=== PATIENT | female | born 1950 | race Caucasian/White ===

== ENCOUNTER 2017-01-30 07:12 | Inpatient (IN) | payer BC, MEDICARE ==
[2017-01-30] MEDS ORDERED: IPRATROPIUM-ALBUTEROL 3 ML NEB INHALATION STA (08:16)
--- NOTE | 2017-01-30 08:46 | ED ---
General Adult HPI - General Source: patient, RN notes reviewed Mode of arrival: wheelchair Limitations: no limitations <Shiva Rain - Last Filed: 01/30/17 13:46> <Feliciano Baldwin - Last Filed: 01/31/17 07:54> - General Chief complaint: Extremity Problem,Nontraumatic Stated complaint: Left Leg Pain-No Injury Time Seen by Provider: 01/30/17 08:06 - History of Present Illness Initial comments: This a 66-year-old female presents emergency Department with chief complaint of left leg pain and numbness. Patient states this has been going on for 2 weeks progressively getting worse. She states that her leg slightly feels more weak than usual. Patient states that she has numbness down to her foot along with that pain that radiates from her left low back down to her foot. Patient states that she is able to walk but states it is more painful. Patient denies any bowel, bladder incontinence or retention. Patient states that she has no history of chronic back injuries no surgeries. Patient has no abdominal complaints or nausea vomiting diarrhea constipation. Patient denies any discoloration of her lower leg. Patient has no chest pain or history of DVT. Patient denies any swelling to her lower leg. Patient also states that she's had issues with her COPD. Patient states that she was on steroids and a steroid injection follow sniffily better the following day but states over the weekend she forgot her nebulizer when she went away and states that she's been wheezing today. Patient has any fever or chills no productive cough. (Shiva Rain) - Related Data Home Medications Medication Instructions Recorded Confirmed Albuterol Sulfate [Proventil Hfa] 2 puff INHALATION RT-Q6H PRN 01/30/17 01/30/17 Cholecalciferol (Vitamin D3) 2,000 unit PO DAILY 01/30/17 01/30/17 [Vitamin D3] Ibuprofen [Motrin] 800 mg PO DAILY PRN 01/30/17 01/30/17 Ipratropium-Albuterol Nebulize 3 ml INHALATION RT-QID PRN 01/30/17 01/30/17 [Duoneb 0.5 mg-3 mg/3 ml Soln] Tiotropium Br/Olodaterol HCl 2 spray INHALATION RT-DAILY 01/30/17 01/30/17 [Stiolto Respimat Inhal [place]] Previous Rx's Medication Instructions Recorded HYDROcodone/APAP 5-325MG [[place] 5] 1 each PO Q8HR PRN #60 tab 01/31/17 Allergies Allergy/AdvReac Type Severity Reaction Status Date / Time No Known Allergies Allergy Verified 01/30/17 08:10 Review of Systems ROS Other: All systems not noted in ROS Statement are negative. <Shiva Rain - Last Filed: 01/30/17 13:46> ROS Other: All systems not noted in ROS Statement are negative. <NicolasaFeliciano Quan - Last Filed: 01/31/17 07:54> ROS Statement: Those systems with pertinent positive or pertinent negative responses have been documented in the HPI. Past Medical History Past Medical History: No Reported History History of Any Multi-Drug Resistant Organisms: None Reported Past Surgical History: Bariatric Surgery, Hysterectomy Past Psychological History: No Psychological Hx Reported Smoking Status: Former smoker Past Alcohol Use History: None Reported Past Drug Use History: None Reported <Shiva Rain - Last Filed: 01/30/17 13:46> - Past Family History Father Family Medical History: Myocardial Infarction ([place]) Mother Family Medical History: [place]ocardial Infarction [place]) <NicolasaFeliciano Quan - Last Filed: 01/31/17 07:54> General Exam Limitations: no limitations General appearance: alert, in no apparent distress Neck exam: Present: normal inspection, full ROM. Absent: tenderness, meningismus, lymphadenopathy Respiratory exam: Present: wheezes. Absent: normal lung sounds bilaterally, respiratory distress, rales, rhonchi, stridor Cardiovascular Exam: Present: regular rate, normal rhythm, normal heart sounds. Absent: systolic murmur, diastolic murmur, rubs, gallop, clicks GI/Abdominal exam: Present: soft, normal bowel sounds. Absent: distended, tenderness, guarding, rebound, rigid Extremities exam: Present: other (Patient has weakness noted to the left lower extremity patient is unable to lift leg and complains of paresthesias pulses equal bilaterally) Back exam: Present: full ROM, tenderness (Left low back), paraspinal tenderness. Absent: vertebral tenderness Neurological exam: Present: alert, oriented X3, CN II-XII intact, reflexes normal. Absent: motor sensory deficit Skin exam: Present: warm, dry, intact, normal color. Absent: rash <Shiva Rain - Last Filed: 01/30/17 13:46> Medical Decision Making <Shiva Rain - Last Filed: 01/30/17 13:46> - Lab Data Result diagrams: 01/30/17 09:25 01/30/17 14:25 <Feliciano Baldwin - Last Filed: 01/31/17 07:54> - Medical Decision Making 66-year-old female with past medical history of COPD presenting with acute low back pain and left lower extremity weakness, numbness and paresthesia. Patient has no history of low back pain previously. She developed these symptoms over the last 2 weeks. This was atraumatic. CT was initially obtained and showed possible disc extrusion or fragmentation, MRI was ordered in the emergency department. On examination patient has profound weakness of the left lower extremity, sensory changes below the knee, reflexes 1+ at the patella. Patient has no bowel or bladder symptoms. She does have some paraspinal and midline tenderness and lumbar spine. Case was discussed with orthopedic surgery, they were able to review the MRI while the patient was in the emergency department. She will be admitted for urgent orthopedic surgery. (Feliciano Baldwin) - Lab Data Lab Results 01/30/17 Range/Units 09:25 WBC 7.1 (3.8-10.6) k/uL RBC 4.87 (3.80-5.40) m/uL Hgb 14.5 (11.4-16.0) gm/dL Hct 43.5 (34.0-46.0) % MCV 89.4 (80.0-100.0) fL MCH 29.8 (25.0-35.0) pg MCHC 33.4 (31.0-37.0) g/dL RDW 13.6 (11.5-15.5) % Plt Count 232 (150-450) k/uL Neutrophils % 70 % Lymphocytes % 15 % Monocytes % 5 % Eosinophils % 10 % Basophils % 1 % Neutrophils # 5.0 (1.3-7.7) k/uL Lymphocytes # 1.1 (1.0-4.8) k/uL Monocytes # 0.3 (0-1.0) k/uL Eosinophils # 0.7 (0-0.7) k/uL Basophils # 0.0 (0-0.2) k/uL Disposition <Shiva Rain - Last Filed: 01/30/17 13:46> <Feliciano Baldwin - Last Filed: 01/31/17 07:54> Clinical Impression: Lumbar back pain with radiculopathy affecting left lower extremity, Left leg weakness, Lumbar disc herniation with radiculopathy Disposition: ADMITTED IP TO THIS HOSP Condition: Good Addendum entered and electronically signed by Shiva Rain PAShant 01/30/17 14: 35: EKG performed at 14:17 sinus rhythm with PAC, rate of 99 LA interval 146 QRS duration 88 QT/QTC 364/467
--- NOTE | 2017-01-30 09:04 | XR ---
EXAMINATION TYPE: XR chest 2V DATE OF EXAM: 01/30/2017 COMPARISON: NONE HISTORY: Chest pain with weakness in legs today. TECHNIQUE: Frontal and lateral views of the chest are obtained. FINDINGS: There is no focal air space opacity, pleural effusion, or pneumothorax seen. The cardiac silhouette size is within normal limits. The osseous structures are intact. Cholecystectomy clips a re felt present on lateral view. IMPRESSION: No acute cardiopulmonary process.
--- NOTE | 2017-01-30 09:13 | CT ---
EXAMINATION TYPE: CT lumbar spine wo con DATE OF EXAM: 01/30/2017 9:01 AM COMPARISON: NONE HISTORY: Left leg pain CT DLP: 981 mGycm Automated exposure control for dose reduction was used. Unenhanced CT of the lumbar spine was performed. Bone and soft tissue window settings are submitted as well as coronal and sagittal reconstructions. Previous surgery in the epigastric region noted. Multilevel Schmorl's nodes are seen. Vacuum disc are noted at L4-5 and L5-S1 with degenerative disc disease at remaining levels. Findings suggest sacroil iitis bilaterally. L1-L2: Normal disc space height. No disc herniation protrusion or central stenosis. No facet joint arthropathy. No evidence for foraminal encroachment. L2-L3: There is left lateral disc bulging with mild effacement of thecal sac and left-sided foraminal encroachment. Left lateral protrusion not excluded. Facet arthropathy noted. MRI recommended L3-L4: Diffuse disc bulging with bilateral foraminal encroachment, facet arthropathy, and ligament fl avum hypertrophy. Foraminal encroachment and canal stenosis suspected. L4-L5: Abnormal signal along the left margin of the thecal sac posterior to the L4 vertebral body. Th is could represent extruded disc fragment. Neural lesion not excluded. Recommend MRI with contrast. F acet arthropathy noted and there is severe degenerative disc disease with ligamentum flavum hypertrop hy and diffuse disc bulging and canal stenosis. Slight anterolisthesis of L4 on L5. L5-S1: Severe degenerative disc disease with facet arthropathy. No Canal stenosis. Neural foraminal e ncroachment greater on the right. Congenital limbus deformity of L5 noted. IMPRESSION: Multilevel degenerative disc disease with severe changes at L4-5 and L5-S1. Rounded area of abnormal signal along the left margin of the thecal sac posterior to the L4 vertebral body. Differential diagn osis would include extruded disc fragment and neural sheath lesion. Recommend MRI with contrast. Multilevel disc bulging and foraminal encroachment as discussed above with multilevel canal stenosis suspected. Correlate with MRI. Gallstones suspected.
[2017-01-30] MEDS ORDERED: DEXAMETHASONE SOD PHOSPHATE 10 MG/ML 1 ML VIAL IV STA (09:23)
[2017-01-30] MEDS ORDERED: ALBUTEROL NEBULIZED 2.5 MG/3 ML INHALATION STA (09:33)
--- NOTE | 2017-01-30 13:13 | MR ---
EXAMINATION TYPE: MR lumbar spine wo con DATE OF EXAM: 01/30/2017 COMPARISON: CT lumbar spine from earlier today HISTORY: leg paresthesias, weakness, abnormal CT lumbar TECHNIQUE: Multiplanar, multisequence imaging of the lumbar spine is performed without IV contrast. I V contrast imaging could not be performed as patient could not continue due to quitting related to co ughing episode. FINDINGS: Sagittal images of the lumbar spine show vertebral body heights and alignment to appear sat isfactory. Limbus vertebra involving anterior superior L5 endplate is noted. There are multilevel sup erior and inferior endplate Schmorl nodes. There is multilevel disc desiccation seen. There is multil evel mild disc space narrowing. Vacuum disc phenomenon is redemonstrated in lower lumbar levels. No l arge posterior disc herniations are seen on sagittal images. The conus medullaris remains normal in p osition and signal ending at superior L2 level. The bone marrow signal intensity is within normal li mits. Axial images show the T12-L1 and L1-L2 levels to appear within normal limits. Axial images at the L2-L3 level show mild/moderate broad disc bulge mildly effacing anterior thecal s ac with a left lateral disc protrusion component. There are mild facet degenerative changes seen bila terally with ligamentum flavum hypertrophy. Bilateral neural foramina remain patent. Axial images at L3-L4 level show moderate broad disc bulge effacing anterior thecal sac. There is mil d facet degenerative changes and ligament flavum hypertrophy mildly effacing posterior lateral thecal sac on axial image 16. There is mild bilateral anterior inferior neural foraminal narrowing at this level identified. There appears to be visualization of disc herniation on sagittal image 6 towards the left foramina wi th discontinuity seen on image 15 and then visualization of low intense area on T2-weighted images ar e correlated with CT abnormality filling the left lateral recess likely effacing central left L4 nerv e in the anterolateral spinal canal. Lesion is extra medullary presumed extradural in location. Axial images at L4-L5 level show mild to moderate facet degenerative changes and ligament flavum hype rtrophy bilaterally. There is central disc bulge mildly effacing anterior thecal sac. There is some e ffacement the posterior lateral thecal sac. There is mild bilateral neural foraminal narrowing at thi s level identified. Axial images at L5-S1 level show mild right-sided facet degenerative changes. There is broad disc bul ge minimally effacing the anterior thecal sac. There is mild bilateral anterior inferior neural lucy inal narrowing at this level identified. Dependent gallstones are seen in gallbladder varying in size. IMPRESSION: Suboptimal study as patient could not complete post contrast imaging. There is significan t artifact degradation on T1 axial imaging. There is abnormal area at level of the left L4 vertebra u pper to mid aspect of uncertain etiology, more importantly it is effacing the anterolateral spinal ca nal and lateral recess as well as central left L4 nerve ; would favor a free disc fragment over disc extrusion, other etiologies not excluded. Neurosurgical consultation advised though lesion is strongl y favored chronic in etiology.
[2017-01-30] MEDS ORDERED: ceFAZolin 2 GM in SODIUM CHLORIDE 0.9% 100 ML IVPB STA (13:39)
[2017-01-30] MEDS ORDERED: ONDANSETRON 4 MG/2 ML VIAL IVP PRN (13:47)
[2017-01-30] MEDS ORDERED: NALOXONE 0.4 MG/ML 1 ML VIAL IV PRN (13:47)
[2017-01-30] MEDS ORDERED: MORPHINE SULFATE 4 MG/ML SYRINGE IV PRN (13:47)
[2017-01-30] MEDS ORDERED: DIAZEPAM 5 MG/ML 2 ML SYRINGE IVP PRN (13:49)
[2017-01-30 14:27] LABS: Basophils % (A) 1 %; CH 29.4; CHCM 33.1; Eosinophils # (A) 0.7 k/uL (0-0.7); Eosinophils % (A) 10 %; HCT 43.5 % (34.0-46.0); HGB 14.5 gm/dL (11.4-16.0); Luc # (Auto) 0.05; Luc % (Auto) 1; Lymphocytes # (A) 1.1 k/uL (1.0-4.8); Lymphocytes % (A) 15 %; MCH 29.8 pg (25.0-35.0); MCHC 33.4 g/dL (31.0-37.0); MCV 89.4 fL (80.0-100.0); Mean Platelet Volume 7.7; Monocytes # (A) 0.3 k/uL (0-1.0); Monocytes % (A) 5 %; Neutrophils % (A) 70 %; RBC 4.87 m/uL (3.80-5.40); RDW 13.6 % (11.5-15.5); WBC 7.1 k/uL (3.8-10.6); WBC (Perox) 7.19
[2017-01-30] MEDS: SODIUM CHLORIDE 0.9% 1,000 ML IV SCH (14:55)
[2017-01-30 14:58] LABS: ALT 36 U/L (9-52); AST 27 U/L (14-36); Alkaline Phosphatase 120 U/L (38-126); Anion Gap 11 mmol/L; Blood Urea Nitrogen 11 mg/dL (7-17); Calcium 8.7 mg/dL (8.4-10.2); Carbon Dioxide 25 mmol/L (22-30); Chloride 106 mmol/L (98-107); Glucose 127 mg/dL (74-99); Non-African American GFR(MDRD) >60 (>60 ml/min/1.73 sqM); Potassium 4.1 mmol/L (3.5-5.1); Sodium 142 mmol/L (137-145); Total Bilirubin 0.5 mg/dL (0.2-1.3); Total Protein 6.9 g/dL (6.3-8.2)
[2017-01-30 14:59] LABS: Partial Thromboplastin Time 24.3 sec (22.0-30.0); Prothrombin Time 10.2 sec (9.0-12.0)
[2017-01-30] MEDS ORDERED: IV FLUID CONTINUATION 975 ML IV ONE (16:15)
[2017-01-30] MEDS ORDERED: BACITRACIN 50,000 UNIT, POLYMYXIN B 500,000 UNIT in SODIUM CHLORIDE 0.9% IRRIGATIO 1,00... IRRIGATION STA (16:48)
--- NOTE | 2017-01-30 17:32 | P.HPOR ---
History of Present Illness H&P Date: 01/30/17 Chief Complaint: left leg pain and waeknes Patient is a very pleasant 66-year-old female who has an acute issue with left lower extremity pain and weakness. She says that she denies any specific injury. She denies any trauma. She denies any prior problem with her back or leg. She says that she was pulling some weeds over the weekend and it was somewhat strenuous but she woke up today and was having severe pain and weakness at her left leg. She was unable to stand unable to ambulate. She is normally a community ambulate without any assistance. She says she feels extremely weak at her left thigh and she has burning pain with numbness and tingling down her left anterior thigh over her knee and do over her li. She' s not having problems in her right lower extremity. She denies any chest pain or shortness of breath. She denies any fevers or chills. Review of Systems As stated in HPI. She admits to history of COPD which she takes medicine. Past Medical History Past Medical History: COPD Additional Past Medical History / Comment(s): BRONCHITS,"2 PAST EPISODES OF FAST HEART RATE- [place] AT [facility] FOR IT" History of Any Multi-Drug Resistant Organisms: None Reported Past Surgical History: Bariatric Surgery, Heart Catheterization, Hysterectomy, Orthopedic Surgery, Tonsillectomy, Tubal Ligation Additional Past Surgical History / Comment(s): PARTIAL HYSTERECTOMY, RT KNEE SX FOR TORN TENDON, COLONOSCOPY-"CLEAR" Past Anesthesia/Blood Transfusion Reactions: No Reported Reaction Past Psychological History: No Psychological Hx Reported Additional Psychological History / Comment(s): PT LIVES WITH HER DAUGHTER ESAU IN 2 STORY HOME THAT HAS 1 PORCH STEP. PT STAYS ON MAIN LEVEL. HAS 3 PET DOGS. NO HOMECARE SERVICES. 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 Smoking Status: Former smoker Past Alcohol Use History: None Reported Additional Past Alcohol Use History / Comment(s): STARTED SMOKING AT AGE 15(1966 ) SMOKED 1/2 PPD, QUIT 2013 AND STARTED TO USE VAPOR Past Drug Use History: None Reported - Past Family History Father Family Medical History: Myocardial Infarction ([place]) Mother Family Medical History: Myocardial Infarction ([place]) Medications and Allergies Home Medications Medication Instructions Recorded Confirmed Type Albuterol Sulfate [Proventil Hfa] 2 puff INHALATION RT-Q6H PRN 01/30/17 History Cholecalciferol (Vitamin D3) 2,000 unit PO DAILY 01/30/17 01/30/17 History [Vitamin D3] Ibuprofen [Motrin] 800 mg PO DAILY PRN 01/30/17 01/30/17 History Ipratropium-Albuterol Nebulize 3 ml INHALATION RT-QID PRN 01/30/17 01/30/17 History [Duoneb 0.5 mg-3 mg/3 ml Soln] Tiotropium Br/Olodaterol HCl 2 spray INHALATION RT-DAILY 01/30/17 01/30/17 History [Stiolto Respimat Inhal [place]] Allergies Allergy/AdvReac Type Severity Reaction Status Date / Time No Known Allergies Allergy Verified 01/30/17 08:10 Physical Examination Osteopathic Statement: *. No significant issues noted on an osteopathic structural exam other than those noted in the History and Physical/Consult. - L Spine: dermatomal strength & reflexes left Strength: hip flexion: 2/5 Strength: knee extension: 3/5 Strength: ankle dorsiflexion: 5/5 Strength: ankle plantar flexion: 5/5 Strength: great toe flexion: 5/5 Strength: great toe extension: 5/5 (At her low back there is no open wounds lacerations or abrasions. She is nontender to palpation over her back. Had her extremities at her left lower extremity she is unable to lift her leg up off the bed independently. She fires her left quad but it is not having of strength to hold her leg up. She essentially has 2+ to 3 minus strength at her left quadriceps. She is able to dorsiflex and plantarflex with 5 out of 5 strength on the left and right. Her right leg has 5 and 5 strength throughout. She has no pain with internal rotation of her hip. Her thigh and calf are soft nontender. Her chest is good excursion deep inspiration and expiration. Her upper extremity full active and passive range of motion. Her neck is nontender.) Results - Labs Labs: Abnormal Lab Results - Last 24 Hours (Table) 01/30/17 Range/Units 14:25 Glucose 127 H (74-99) mg/dL H & H 01/30/17 Range/Units 09:25 Hgb 14.5 (11.4-16.0) gm/dL Hct 43.5 (34.0-46.0) % Coagulation 01/30/17 Range/Units 14:40 INR 1.0 (<1.2) Result Diagrams: 01/30/17 09:25 01/30/17 14:25 - Diagnostic results Lumbar MRI with contrast: report reviewed, image reviewed (The lumbar MRI is performed today. There is evidence of a large disc herniation at L3 4 with extruded fragment caudally behind L4. It is primarily to the left and causing severe stenosis with left foraminal stenosis and severe compression of the left traversing nerve root.) Assessment and Plan Plan: Acute left L3 4 disc herniation with extruded fragment Acute left lower extremity weakness Acute left lower extremity pain due to L3 4 disc herniation The plan The patient has acute symptoms due to a acute large disc herniation at L3 4. She has severe weakness proximally in her left quad which causes her inability to ambulate and mobilize. The weakness is due to the disc herniation and I think the best treatment for her would be to decompress the nerve and allow the best chance of recovery and regaining her strength. Given that the weakness is proximal this certainly is more pressing issue to try to regain her strength so that she will be able to better mobilize. I do not think this requires any fusion at this point and I think that she can do well with decompression laminectomy and discectomy at L3 4. I discussed this with her and her daughter at bedside at length. I discussed the risks, occasions alternatives of treatment. I discussed the nature of her injury and the different issues involved with this. Discussed the risk of surgery including but not limited to the risk of bleeding risk and infection risk and need for further surgery risk of decreased loss of motion loss function, all dressings were explained to her and they like to proceed with surgical intervention and signed informed consent. The patient has been seen by medical service and she has been appropriately cleared for surgery. We will pursue surgical intervention for decompression and discectomy at L3 4 as soon as possible.
[2017-01-30] MEDS ORDERED: PHENYLEPHRINE-0.9% NACL SYG 1 MG/10 ML SYRINGE ONE (17:41)
[2017-01-30] MEDS ORDERED: ONDANSETRON 4 MG/2 ML VIAL ONE (17:41)
[2017-01-30] MEDS ORDERED: HYDROmorphone (PF) 1 MG/ML ONE (17:41)
[2017-01-30] MEDS ORDERED: NALOXONE 0.4 MG/ML 1 ML VIAL ONE (17:41)
[2017-01-30] MEDS ORDERED: LIDOCAINE 1% INJ 10MG/ML (20 ML MDV) ONE (17:41)
[2017-01-30] MEDS ORDERED: SUCCINYLCHOLINE CHLORIDE 100 MG/5 ML SYR IV ONE (17:41)
[2017-01-30] MEDS ORDERED: fentaNYL (PF) 50 MCG/ML 2 ML AMP ONE (17:41)
[2017-01-30] MEDS ORDERED: NEOSTIGMINE 1 MG/ML 10 ML VIAL ONE (17:41)
[2017-01-30] MEDS ORDERED: MIDAZOLAM 2 MG/2 ML VIAL ONE (17:41)
[2017-01-30] MEDS ORDERED: GLYCOPYRROLATE 0.2 MG/ML 2 ML VIAL ONE (17:41)
[2017-01-30] MEDS ORDERED: ROCURONIUM BROMIDE 10 MG/ML 10 ML VIAL IV ONE (17:41)
[2017-01-30] MEDS ORDERED: PROPOFOL 10 MG/ML 20 ML VIAL IV ONE (17:41)
[2017-01-30] MEDS ORDERED: SODIUM CHLORIDE 0.9% 100 ML with ceFAZolin 2,000 MG IV ONE ×2 (18:00)
[2017-01-30] MEDS ORDERED: THROMBIN (BOVINE) 5,000 UNIT VIAL TOPICAL ONE (18:09)
[2017-01-30] MEDS ORDERED: GELATIN SPONGE,ABSORB (LARGE) 1 EACH SPONGE TOPICAL ONE (18:09)
[2017-01-30] MEDS ORDERED: LIDOCAINE 0.5%-EPI 1:200,000 50 ML VIAL SQ ONE ×2 (18:09)
[2017-01-30] MEDS ORDERED: methylPREDNISolone ACETATE 80 MG/ML 1 ML VIAL MISCELLANE ONE (18:14)
[2017-01-30] MEDS ORDERED: HYDROmorphone 1 MG/ML 1 ML SYRINGE IVP PRN ×2 (19:02)
[2017-01-30] MEDS ORDERED: HYDROcodone/APAP 5-325MG 1 EACH TAB PO PRN (19:02)
[2017-01-30] MEDS ORDERED: MAGNESIUM HYDROXIDE 2,400 MG/10 ML CUP PO PRN (19:02)
[2017-01-30] MEDS ORDERED: BENZOCAINE/MENTHOL LOZENG 1 EACH LOZENGE MUCOUS MEM PRN (19:02)
[2017-01-30] MEDS ORDERED: DIAZEPAM 5 MG TAB PO PRN (19:02)
[2017-01-30] MEDS ORDERED: IBUPROFEN 600 MG TAB PO PRN (19:02)
--- NOTE | 2017-01-30 19:09 | P.OP ---
Date of Procedure: 01/30/17 Preoperative Diagnosis: Left lower extremity quadriceps weakness, acute, acute large disc herniation L3 4, degenerative disc disease Postoperative Diagnosis: Same Procedure(s) Performed: Implants: Anesthesia: GETA Pathology: none sent Condition: stable Disposition: PACU Indications for Procedure: Operative Findings: Description of Procedure: BRIEF OPERATIVE NOTE Preoperative Diagnosis: Large left L3 4 disc herniation with extruded fragments , left lower extremity weakness, degenerative disc disease Postoperative Diagnosis: Same Procedure: Laminectomy and decompression L3 4 Discectomy for decompression L3 4 Surgeon: Dr. Kuhn [employer] Manager: Griselda Andrews Anesthesia: General anesthesia Estimated blood loss: Approximately 50 mL Complications: None apparent Components implanted: None Disposition: To recovery room in good stable condition. OPERATIVE INDICATIONS The patient is very pleasant 66-year-old female who had acute sudden change in her lower neurologic status at her left lower extremity. She acute sudden weakness at her left quadriceps and this was causing her severe inability to ambulate and mobilize. She is unable to stand on her own due to the weakness at her left quadriceps. She was having difficulty even moving her left leg in bed. She presented to the emergency room today for this issue and was having significant pain at her left lower extremity as well. She was found have a large left paracentral disc herniation at L3 4 which correlated well with her lower extremity symptoms. She denied any specific injury or trauma or problems like this in the past. She had been doing some increased activity with yard work over this past weekend which she feels may have contributed to her new issues today. Given her profound weakness at her the proximal left leg in her quadriceps and the large discoloration which correlated well with her symptoms we felt that surgery would be the best option for her to give her the best chance of recovery of the strength and alleviation of her pain at her leg. We discussed various treatment options including surgery, and the patient wishes to proceed with surgery We discussed the risk, patient's alternatives and benefits of surgery including but not limited to, risk of bleeding risk of infection, risk of need for further surgery, risk of decreased, loss of motion, loss of function, nerve damage, paralysis, heart attack, blindness and . OPERATIVE SUMMARY After discussing all the risks, patient alternatives and benefits at length, the patient elected to proceed with surgical intervention, signed informed consent, and presented for their procedure. The patient was seen and examined in the preoperative holding area and the surgical site was marked. The patient was given antibiotics and brought to the operating room. The patient was sedated and intubated by anesthesia in standard fashion. The patient was positioned on to the operating room table in a prone position on the appropriate frame which was well-padded and well molded. We were careful to pad any bony prominences and pressure points. We were careful to maintain the patient's cervical spine and good neutral alignment and position throughout. The patient was prepped and draped in a normal standard fashion. An appropriate timeout and keystone protocol performed. We were able to proceed with the surgery. Fluoroscopy was utilized to establish the appropriate level of L3 4. The local wound area was infiltrated with local anesthetic. An incision was made at the midline longitudinally over the appropriate levels at L3 4. Dissection was taken down subcutaneously to the level of the fascia which was split midline. Dissection was taken over the lamina. Intraoperative fluoroscopy was taken which showed a marker at the appropriate level at L3 4. With the appropriate level positively confirmed, we were able to proceed with laminectomy. The wound was copiously irrigated and suctioned dry as had been done periodically throughout the case. I performed a laminectomy with a combination of curettes and a high-speed bur and Kerrison rongeurs. A small medial facetectomy was performed again further access. A partial foraminotomy was also performed. Portions of the ligamentum flavum were taken down to expose the dura and traversing nerve root. I was able to mobilize the traversing nerve root and gain access to the disc space. Note was made of obvious compression from the disc. There were large extruded disc fragments which had migrated caudally causing severe compression at the traversing nerve root. There were multiple fragments which had extruded and these were removed getting some good decompression. Protecting the soft tissue structures, a small annulotomy was established. I was able to perform discectomy and remove any extruded disc fragments and any loose fragments from within the disc itself. There were multiple fragmented disc pieces which were removed and the annulus appeared to be everting in the disc space and it was removed as well. There is some disc significant desiccation noted. I tried to preserve the disc annulus that appeared stable. There were no further extruded fragments noted. I was able get excellent decompression with removal of the disc material in the disc fragments. There is no evidence of dural tear or leak. Good hemostasis maintained. The wound was copiously irrigated and suctioned dry. Good decompression and discectomy was noted. We were able to proceed with closure. The fascia was closed for a watertight closure. The subcuticular tissue was closed with absorbable suture. The wound was cleaned and dried and dressed with the appropriate dressing. The drapes were broken down. The patient was gently rolled back onto their hospital bed being careful to maintain their cervical spine and good neutral alignment and position. They were woken up by anesthesia, extubated, and brought to the recovery room in good stable condition. The patient will be admitted to the hospital for observation and for appropriate postoperative care, medical management and monitoring. We will continue to follow them closely about the postoperative course.
[2017-01-30] MEDS ORDERED: SODIUM CHLORIDE 0.9% 1,000 ML IV SCH (19:15)
--- NOTE | 2017-01-30 19:27 | FL ---
EXAMINATION TYPE: FL guidance operating room, XR lumbar spine 1V DATE OF EXAM: 01/30/2017 CLINICAL HISTORY: Lumbar laminectomy TECHNIQUE: Fluoroscopy. COMPARISON: None. FINDINGS: Fluoroscopic guidance was provided during procedure performed by Dr. Kuhn. A total of 6 seconds of fluoroscopic time was utilized during the procedure and 1 spot images was acquired. IMPRESSION: Intraoperative fluoroscopic imaging as described above.
[2017-01-30] MEDS ORDERED: ALBUTEROL NEBULIZED 2.5 MG/3 ML INHALATION ONE (19:30)
[2017-01-30] MEDS: KETOROLAC 30 MG/ML 1 ML VIAL IVP PRN (21:12)
[2017-01-31] MEDS: ceFAZolin 2 GM in SODIUM CHLORIDE 0.9% 100 ML IVPB SCH ×2 (00:51→07:30)
[2017-01-31] MEDS: SODIUM CHLORIDE 0.9% 1,000 ML IV SCH (05:20)
[2017-01-31] MEDS: KETOROLAC 30 MG/ML 1 ML VIAL IVP PRN (07:30)
[2017-01-31] MEDS ORDERED: IPRATROPIUM-ALBUTEROL 3 ML NEB INHALATION PRN ×2 (07:36→07:37)
--- NOTE | 2017-01-31 07:36 | P.DS ---
Providers Date of admission: 01/30/17 13:48 Attending physician: Dominguez Kuhn Consults: 01/30/17 13:47 Consult Physician Stat Consulting Provider: Manny Cooley Consult Reason/Comments: Surgical clearance Do you want consulting provider notified?: Yes Primary care physician: Kelli Lopez MD Hospital Course: The patient presented on the day of admission as per her operative note. She is a 66-year-old female who had sudden acute weakness at her left lower extremity and was unable to stand or walk. She is having severe pain at her left lower extremity and was found have a large acute new disc herniation at L3 4 causing severe stenosis and which correlated well to her lower extremity symptoms and pain. She is having neurologic deficit acutely due to the disc herniation and after discussing different treatment options and issues she elected proceed with surgical intervention and underwent laminectomy with decompression and discectomy at L3 4 yesterday as per her operative note. This morning the patient states she is doing quite well. She has not required pain medications this morning. She feels much stronger at her left leg today. She feels her pain is greatly improved since yesterday after her surgery. She has been up out of bed. She has tolerated some of her diet. She is actually asking when she'll be able to play golf. Physical Exam The incision site is clean dry and intact. There is no erythema no drainage. There is no purulence no evidence of infection. Abdomen soft and nontender. Chest has good excursion with deep inspiration and expiration. The patient has active and passive range of motion intact at the upper and lower extremities. At her left lower extremity she has had great improvement in her strength in her left quadriceps. She is able to lift her leg up off the bed independently and she is able to hold her leg up in extension at her knee with 4 out of 5 strength. This is greatly improved from her 2+ to 3 minus strength at her left quadriceps yesterday prior to her surgery. She has sustained dorsal flexion plantarflexion and EHL. Hospital Course Status post laminectomy and discectomy at L3 4 for a acute disc herniation at L3 4 with neurologic deficit and left leg numbness and weakness Significant improvement postoperatively with her strength and pain The patient has been making good progress postoperatively. They have completed the prophylactic antibiotics without any signs or symptoms of infection. The patient has been able to advance their diet, and is tolerating diet adequately. The pain was initially controlled with IV medications and is now controlled appropriately with oral medications. The patient has been able to increase their mobilization. She has been able to make good strides in her strength improvement in her pain at her left leg with her surgery The patient has progressed appropriately. I think they are in good stable condition for discharge today. They will be sent home with appropriate prescriptions. I answered their questions to the best of my ability in a language that they can understand and they are agreeable with the plan. They will follow up as directed in approximately 2 weeks or sooner if she has any problems. Patient Condition at Discharge: Good Plan - Discharge Summary New Discharge Prescriptions: New HYDROcodone/APAP 5-325MG [[place] 5] 1 each PO Q8HR PRN #60 tab PRN Reason: Pain No Action Cholecalciferol (Vitamin D3) [Vitamin D3] 2,000 unit PO DAILY Ipratropium-Albuterol Nebulize [Duoneb 0.5 mg-3 mg/3 ml Soln] 3 ml INHALATION RT-QID PRN PRN Reason: Shortness Of Breath Tiotropium Br/Olodaterol HCl [Stiolto Respimat Inhal [place]] 2 spray INHALATION RT-DAILY Albuterol Sulfate [Proventil Hfa] 2 puff INHALATION RT-Q6H PRN PRN Reason: Shortness Of Breath Ibuprofen [Motrin] 800 mg PO DAILY PRN PRN Reason: Pain Discharge Medication List Albuterol Sulfate [Proventil Hfa] 2 puff INHALATION RT-Q6H PRN 01/30/17 [History ] Cholecalciferol (Vitamin D3) [Vitamin D3] 2,000 unit PO DAILY 01/30/17 [History] Ibuprofen [Motrin] 800 mg PO DAILY PRN 01/30/17 [History] Ipratropium-Albuterol Nebulize [Duoneb 0.5 mg-3 mg/3 ml Soln] 3 ml INHALATION RT -QID PRN 01/30/17 [History] Tiotropium Br/Olodaterol HCl [Stiolto Respimat Inhal [place]] 2 spray INHALATION RT-DAILY 01/30/17 [History] HYDROcodone/APAP 5-325MG [[place] 5] 1 each PO Q8HR PRN #60 tab 01/31/17 [Rx] Follow up Appointment(s)/Referral(s): Kelli Lopez MD [Primary Care Provider] - 1-2 days Dominguez Kuhn DO [Doctor of Osteopathic Medicine] - 10 Days Activity/Diet/Wound Care/Special Instructions: May ambulate to tolerance. Avoid heavy or rigorous activity. No repetitive bending stooping or twisting. No lifting greater than 15 pounds Keep site clean. May shower with waterproof Tegaderm intact. On Sunday May remove dressing and then may shower with area uncovered, but leave Steri-Strips intact and allow them to fray off on their own. Discharge Disposition: HOME SELF-CARE
[2017-01-31 07:37] LABS: Appearance,Urine Clear (Clear); Bilirubin,Urine Negative (Negative); Glucose,Urine (UA) Trace (Negative); Ketones,Urine Trace (Negative); Leukocyte Esterase,Urine Negative (Negative); Nitrite,Urine Negative (Negative); PH, Urine 5.5 (5.0-8.0); Protein,Urine Negative (Negative); Specific Gravity,Urine 1.015 (1.001-1.035); UA Billing (MACRO vs. MICRO) CHEM; Urobilinogen,Urine <2.0 mg/dL (<2.0)
[2017-01-31] MEDS ORDERED: ALBUTEROL NEBULIZED 2.5 MG/3 ML INHALATION PRN (07:37)
[2017-01-31] MEDS ORDERED: IBUPROFEN 800 MG TAB PO PRN (07:37)
[2017-01-31] MEDS ORDERED: [UNRECOGNIZED DRUG - OTHER] INHALATION SCH (08:00)
[2017-01-31] MEDS ORDERED: OLODATEROL HCL INHALATION SCH (08:00)
[2017-01-31] MEDS ORDERED: TIOTROPIUM BR INHALATION SCH (08:00)
[2017-01-31] MEDS ORDERED: SENNOSIDES-DOCUSATE SODIUM 1 EACH TAB PO SCH (09:00)
[2017-01-31] MEDS ORDERED: CHOLECALCIFEROL 1,000 UNIT TAB PO SCH (09:00)
[2017-01-31 09:27] VITALS: BP 116/56; PULSE 98; RESP 18; TEMP 98.1
== END 2017-01-31 11:04 | disposition home or self-care (01) | DRG 520 ==
LOC: EC 07:12 → 5MS5E 13:48
PROVIDERS: ADMIT Orthopaedic Surgery Orthopaedic Surgery of the Spine; ATTEND Orthopaedic Surgery Orthopaedic Surgery of the Spine
PROC: 0SB20ZZ Excision of Lumbar Vertebral Disc, Open Approach (ICD-10-PCS; principal; 2017-01-30 17:30)
DX: M51.06 Intervertebral disc disorders with myelopathy, lumbar region (principal); J44.9 Chronic obstructive pulmonary disease, unspecified; M51.16 Intervertebral disc disorders with radiculopathy, lumbar region; M48.06 Spinal stenosis, lumbar region; I49.1 Atrial premature depolarization; R20.9 Unspecified disturbances of skin sensation; R26.2 Difficulty in walking, not elsewhere classified; F17.290 Nicotine dependence, other tobacco product, uncomplicated; Z82.49 Family history of ischemic heart disease and other diseases of the circulatory system; Z79.899 Other long term (current) drug therapy; Z79.1 Long term (current) use of non-steroidal anti-inflammatories (NSAID); Z86.79 Personal history of other diseases of the circulatory system; Z86.19 Personal history of other infectious and parasitic diseases; Z87.09 Personal history of other diseases of the respiratory system; Z98.51 Tubal ligation status; Z90.710 Acquired absence of both cervix and uterus; Z98.84 Bariatric surgery status
CPT/HCPCS: 71020; 72020; 72131; 72148; 80053; 81003; 85025; 85610; 85730; 93005; 94640; 96365; 96366; 96375; 99285

== ENCOUNTER → 2017-04-06 | Outpatient (CLI) | payer BC, MEDICARE ==
[~2017-04-06] MED LIST: REGADENOSON 0.4 MG/5 ML SYRINGE IV ONE
--- NOTE | 2017-04-06 10:47 | NM ---
EXAMINATION TYPE: NM stress lexiscan cardiolite DATE OF EXAM: 04/06/2017 COMPARISON: NONE HISTORY: Shortness of breath, tobacco use, and family history of cardiac disease. TECHNIQUE: After the intravenous administration of 10.98 mCi Tc 99m Sestamibi - Cardiolite resting S PECT images acquired 45 minutes post injection. The patient received 0.4mg Lexiscan, 27.9 mCi Tc 99m Sestamibi - Stress images obtained [address] injection FINDINGS: Review of stress and rest SPECT images demonstrates no reversible perfusion abnormality. Fixed defect is seen in the distribution of the right coronary artery, approximately 3 segments and moderate. Gat ed analysis shows normal wall motion with an estimated left ventricular ejection fraction of 64 %. TI D of 1 1.04 IMPRESSION: 1. No scintigraphic evidence for reversible ischemia. 2. Moderate 3 segment fixed defect in the distribution of the right coronary artery representing prio r infarct. 3. Estimated left ventricular ejection fraction of 64%.
--- NOTE | 2017-04-06 21:23 | EST ---
EXERCISE STRESS AGE: 66 SEX: Female HT: 66 WT: 210 PROTOCOL: Lexiscan Cardiolite HEART RATE REST: 68 BLOOD PRESSURE REST: 185/77 MAXIMUM HEART RATE ACHIEVED: 91 MAXIMUM BLOOD PRESSURE: 200/78 INDICATIONS: Shortness of breath. CLINICAL INFORMATION: Baseline EKG shows sinus rhythm, normal axis, normal intervals. Patient was given intravenous Lexiscan as per protocol. Did not have chest pain or diagnostic ST-segment depression. CONCLUSIONS: 1. Negative stress test by EKG criteria. 2. Cardiolite portion of this stress test will be reported separately. MMODL / IJN: [id number] /
== END ==
LOC: RADNMMAIN 07:38
PROVIDERS: ATTEND Internal Medicine
DX: R06.02 Shortness of breath (principal)
CPT/HCPCS: 93017; 78452; A9500; J2785

== ENCOUNTER → 2018-04-12 | Outpatient (CLI) | payer BC, MEDICARE ==
--- NOTE | 2018-04-12 09:28 | MM ---
Reason for exam: additional evaluation requested from prior study. Last mammogram was performed 3 years and 8 months ago. History: Patient is postmenopausal. Physical Findings: Nurse did not find any significant physical abnormalities on exam. MG 3D Diag Mammo W/Cad MANUEL Bilateral CC and MLO view(s) were taken. Prior study comparison: July 31, 2014, mammogram, performed at [facility]. September 30, 2008, right breast mammogram, performed at [facility]. September 18, 2008, mammogram, performed at [facility]. July 11, 2007, mammogram, performed at [facility]. The breast tissue is heterogeneously dense. This may lower the sensitivity of mammography. There is a 3mm group of calcifications in left upper outer quadrant at middle depth. No suspicious abnormality in the right breast. These results were verbally communicated with the patient and result sheet given to the patient on 04/12/18. ASSESSMENT: Incomplete: need additional imaging evaluation, BI-RAD 0 RECOMMENDATION: Special view mammogram of the left breast. (magification views are needed) If lesion persists on supplemental views, image directed ultrasound is recommended. [facility] will attempt to contact patient to return for supplemental views and ultrasound if indicated.
--- NOTE | 2018-04-12 09:46 | XR ---
EXAMINATION TYPE: XR chest 2V DATE OF EXAM: 04/12/2018 COMPARISON: NONE HISTORY: Shortness of breath TECHNIQUE: Frontal and lateral views of the chest are obtained. FINDINGS: Scattered senescent parenchymal changes noted. No evidence for infiltrate. No evidence for atelectasis. Heart size is stable. Mediastinal structures are stable and grossly unremarkable. No evidence for hilar prominence. Degenerative changes dorsal spine. IMPRESSION: 1. No evidence for acute pulmonary disease.
== END | disposition home or self-care (01) ==
LOC: RADMAMWWP 07:25
PROVIDERS: ATTEND Internal Medicine
DX: R92.8 Other abnormal and inconclusive findings on diagnostic imaging of breast (principal); R09.89 Other specified symptoms and signs involving the circulatory and respiratory systems
CPT/HCPCS: 71046; 77062; 77066

== ENCOUNTER → 2018-05-10 | Day surgery (SDC) | payer BC, MEDICARE ==
[2018-05-10 09:56] VITALS: RESP 16; BMI 33.9
[2018-05-10 11:42] VITALS: BP 139/80; PULSE 71; TEMP 97.9
--- NOTE | 2018-05-10 12:30 | MM ---
EXAMINATION TYPE: MG stereo VAD BX LT DATE OF EXAM: 05/10/2018 COMPARISON: Prior mammogram April 19, 2018 and older studies. CLINICAL HISTORY: Abnormal mammogram TECHNIQUE: Stereotactic guided core biopsy of left breast with clip placement and follow-up two-view mammogram. FINDINGS: The procedure of stereotactic guided core biopsy was explained to the patient. Benefits, alternatives, and risks were discussed. An informed consent was then obtained. [facility] Shortness pathway was outer approach. I performed the localization, then performed the remainder of the procedure. Overlying skin is cleansed. Lidocaine with bicarbonate is used as anesthetic in the skin and subcutaneous tissue. Lidocaine with epinephrine is used as anesthetic into the deeper tissue. A vacuum assisted biopsy gun was used to obtain multiple core samples. The patient tolerated the procedure well without any immediate complication. The patient was kept in the radiology department for short stay after the procedure and then discharged home in stable condition. Targeted calcifications are identified in specimen mammogram. Post biopsy mammogram shows the clip to appear in satisfactory position relative to the targeted area of concern on the preprocedure images. No residual calcifications are identified. IMPRESSION: SUCCESSFUL, UNCOMPLICATED STEREOTACTIC GUIDED CORE BIOPSY OF AREA OF CONCERN IN THE LEFT BREAST, FULL PATHOLOGY RESULTS TO FOLLOW. Low to intermediate index of suspicion noted at time of procedure. 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 Appropriately controlled immunohistochemical studies for cytokeratin 5/6 are non reactive with neoplastic duct cells whereas E-Cadherin strongly reacts with the same neoplastic duct cell population. Recommendation Surgical consult of the left breast. Therapy and follow up. LUIS A
== END ==
LOC: RADMAMWWP 09:18
PROVIDERS: ATTEND Internal Medicine
DX: D05.92 Unspecified type of carcinoma in situ of left breast (principal)
CPT/HCPCS: 88305; 88342; 88341; 19081; A4648; J2001

== ENCOUNTER 2018-06-06 10:18 | Day surgery (SDC) | payer BC, MEDICARE ==
[2018-06-04 08:45] VITALS: BMI 35.5
[~2018-06-06 10:18] MED LIST changes: +DEXAMETHASONE SOD PHOSPHATE 10 MG/ML 1 ML VIAL IV ONE; +HEPARIN SODIUM,PORCINE 5,000 UNIT/ML 1 ML VIAL SQ ONE; +LACTATED RINGERS 1,000 ML IV SCH; +LIDOCAINE 1% 20 ML VIAL (10MG/ML) FOR IV START INTRADERMA PRN; +MIDAZOLAM 2 MG/2 ML VIAL IV PRN; +ONDANSETRON 4 MG/2 ML VIAL IVP ONE; -REGADENOSON 0.4 MG/5 ML SYRINGE IV ONE; +SCOPOLAMINE 1.5MG/72HR PATCH TRANSDERM ONE
[2018-06-06] MEDS ORDERED: ALPRAZolam 0.25 MG TAB PO ONE (10:30)
[2018-06-06] MEDS ORDERED: LIDOCAINE 1% INJ 10MG/ML (20 ML MDV) SQ ONE (11:45)
[2018-06-06] MEDS ORDERED: SODIUM BICARB 4% 5 ML VIAL (0.48 MEQ/ML) MISCELLANE ONE (11:45)
[2018-06-06] MEDS ORDERED: PROPOFOL 10 MG/ML 20 ML VIAL IV ONE (13:13)
[2018-06-06] MEDS ORDERED: LIDOCAINE 1% INJ 10MG/ML (20 ML MDV) ONE (13:13)
[2018-06-06] MEDS ORDERED: fentaNYL (PF) 50 MCG/ML 2 ML AMP ONE (13:13)
[2018-06-06] MEDS ORDERED: ePHEDrine SULFATE/0.9% NACL/PF 50 MG/5 ML SYRINGE IV ONE (13:13)
[2018-06-06] MEDS ORDERED: SUCCINYLCHOLINE CHLORIDE 100 MG/5 ML SYR IV ONE (13:13)
[2018-06-06] MEDS ORDERED: MIDAZOLAM 2 MG/2 ML VIAL ONE (13:13)
[2018-06-06] MEDS ORDERED: BUPIVACAIN-EPI 0.25%-1:200,000 30 ML VIAL SQ ONE (13:39)
[2018-06-06] MEDS ORDERED: LACTATED RINGERS 1,000 ML IV ONE (13:40)
--- NOTE | 2018-06-06 14:20 | MM ---
EXAMINATION TYPE: MG pre op needle loc LT, MG surgical specimen LT DATE OF EXAM: 06/06/2018 COMPARISON: Prior mammogram May 10, 2018 and older studies CLINICAL HISTORY: Stereotactic guided core biopsy May 10, 2018 of low- grade DCIS. TECHNIQUE: Needle localization with wire placement and surgical excision of area of concern in the left breast. FINDINGS: The procedure of needle localization with wire placement and than surgical excision was explained to the patient. Benefits, alternatives, and risks were discussed. An informed consent was then obtained. The shortest pathway for procedure was chosen. Shortest pathway was lateral approach. The overlying skin was prepped and draped in usual sterile fashion. Lidocaine buffered with bicarbonate was used as anesthetic into the skin and subcutaneous tissue. Lidocaine with epinephrine is used as anesthetic into the deeper tissue up to the level of area of concern. A 7 cm needle was used. It was placed via a lateral approach under mammographic guidance. Subsequent 90 degrees mammogram show the needle to be in satisfactory position relative to the targeted area. At this point, wire was placed and the needle was withdrawn. The wire was fixed to patient's skin. Images were marked for surgeon. The patient tolerated the procedure well without any immediate complication. The patient was kept in the radiology department for short stay after the procedure and then taken to surgery for surgical excision. Targeted biopsy clip and wire are identified in specimen mammogram. The patient was kept in hospital for short stay after the procedure and then discharged home in stable condition. IMPRESSION: Successful, uncomplicated needle localization with wire placement and surgical excision of targeted biopsy clip in the left breast, full pathology results to follow. Pathology Results: Malignant A. LEFT BREAST, ORIENTED LUMPECTOMY: Focal microscopic duct carcinoma in situ, low grade, measuring 1 mm away from the junction of the purple and green inked margin of resection (posterior inferior). Status post prior needle biopsy procedure ([id number]) with post surgical changes. Parenchymal mineralizations are identified. See Surgical Pathology Cancer Case Summary Report. B. NEW ANTERIOR SUPERIOR MARGIN OF RESECTION: Benign adipose tissue with benign breast lesions (sclerosing adenosis). Recommendation Oncologic management MTDD
[2018-06-06 14:29] VITALS: TEMP 98.2
[2018-06-06] MEDS: HYDROmorphone 1 MG/ML 1 ML SYRINGE IVP PRN ×2 (15:00→15:20)
[2018-06-06 16:12] VITALS: RESP 16
[2018-06-06 17:02] VITALS: BP 130/76; PULSE 80
--- NOTE | 2018-06-13 14:54 | P.OP ---
Date of Procedure: 06/13/18 Procedure(s) Performed: PREOPERATIVE DIAGNOSIS: Left breast cancer POSTOPERATIVE DIAGNOSIS: Same PROCEDURE: Left Breast wire localization lumpectomy SURGEON: Luiz EBL: Minimal ANESTHESIA: General COMPLICATIONS: None OPERATIVE PROCEDURE: Patient was placed on the operating room table in the supine position. The patient's breast was prepped and draped in usual sterile fashion. A curvilinear incision was made adjacent to the wire entrance site at the 2 to 3 o'clock position. I followed the wire down into the breast tissue. The breast tissue around the tip of the wire was fully excised using electrocautery. The lumpectomy specimen was palpated. An additional margin was taken where there was some induration and I suspected there may be some proximity to the biopsy site. The initial specimen was painted the appropriate colors and sent to mammography for specimen radiograph which confirmed clip placement. The additional margin was painted the appropriate colors on the new margin site. The subcutaneous tissues were inspected. No bleeding was seen. The subcutaneous tissues were closed using 3-0 Vicryl sutures. The skin was closed using a running 4-0 Monocryl stitch. Skin glue was then applied. DISPOSITION: Stable to recovery room
== END 2018-06-06 17:03 | disposition home or self-care (01) ==
LOC: OR 10:18
PROVIDERS: ATTEND Surgery
DX: D05.12 Intraductal carcinoma in situ of left breast (principal); N60.22 Fibroadenosis of left breast; Z17.0 Estrogen receptor positive status [ER+]; J45.909 Unspecified asthma, uncomplicated; Z79.891 Long term (current) use of opiate analgesic; Z79.899 Other long term (current) drug therapy; Z91.048 Other nonmedicinal substance allergy status; Z98.84 Bariatric surgery status; Z87.891 Personal history of nicotine dependence
CPT/HCPCS: 88307; 76098; 19281; 19301; J2250; J1644; J1100; J2405; J2001; J3010; J1170; J0330; J2704

== ENCOUNTER → 2018-09-06 | Outpatient (CLI) | payer BC, MEDICARE ==
--- NOTE | 2018-09-06 14:24 | BD ---
EXAMINATION TYPE: Axial Bone Density DATE OF EXAM: 09/06/2018 COMPARISON: NONE CLINICAL HISTORY: Breast carcinoma, post menopausal female with hormonal replacement therapy Height: 5 FT 3 1/4 IN Weight: 220 FRAX RISK QUESTIONS: RISK FACTORS HISTORY OF: Surgery to Spine/Hip(right/left)/Wrist (right/left): LUMBAR SPINE When: 2017 Postmenopausal woman: PART ZULMA AGE 43 Lost more than 2 inches in height since high school: YES MEDICATIONS: Additional Medications: LETROZOLE, VIT D, STIOLITO RESPIMAT, PROVENTIL NEEDED, SINGULAIR, FOLIC AC ID, CLOBETASOL CREAM, Additional History: BREAST CANCER DIAG 2018 JUST FINISHED RADIATION AND JUST STARTED HORMONE TYE EXAM MEASUREMENTS: Bone mineral density about the R hip (g/cm2): 0.891 Bone mineral density about the L hip (g/cm2): 0.930 T Score values are as follows: -----R Neck: -1.1 -----L Neck: -0.8 -----R Total: -0.6 -----L Total: -0.3 PREV LONG AGO Bone mineral density about the R Wrist (g/cm2): 0.569 T Score values are as follows: -----Dist. R+U: -2.0 -----Prox. R+U: -1.0 -----Radius total: -1.7 PREV LONG AGO IMPRESSION: Osteopenia (T Score between -2.5 and -1). There is slightly increased risk of fracture and the patient may be considered for treatment. Re-Screen 2-5 years. NOTE: T-SCORE=SD OF THE YOUNG ADULT MEAN.
== END | disposition home or self-care (01) ==
LOC: RADBDWWP 12:30
PROVIDERS: ATTEND Internal Medicine Hematology & Oncology
DX: D05.12 Intraductal carcinoma in situ of left breast (principal); N95.1 Menopausal and female climacteric states; Z79.890 Hormone replacement therapy; M85.88 Other specified disorders of bone density and structure, other site
CPT/HCPCS: 77080

== ENCOUNTER → 2018-11-08 | Outpatient (CLI) | payer BC, MEDICARE ==
--- NOTE | 2018-11-08 11:33 | MM ---
Reason for exam: follow-up at short interval from prior study. Last mammogram was performed 7 months ago. History: Patient is postmenopausal and has history of breast cancer at age 67. Malignant MG pre op needle loc LT of the left breast, June 06, 2018. Lumpectomy of the left breast, June 06, 2018. Malignant MG stereo VAD BX LT of the left breast, May 10, 2018. Physical Findings: Nurse did not find any significant physical abnormalities on exam. MG 3D Diag Mammo W/Cad LT CC and MLO view(s) were taken of the left breast. Prior study comparison: April 19, 2018, left breast MG 3d follow up no charge LT. April 12, 2018, bilateral MG 3d diag mammo w/cad MANUEL. There are scattered fibroglandular densities. This finding is changed when compared with previous exams. Post operative changes are present. These results were verbally communicated with the patient and result sheet given to the patient on 11/08/18. ASSESSMENT: Benign, BI-RAD 2 RECOMMENDATION: Follow-up diagnostic mammogram of both breasts in 1 year.
== END | disposition home or self-care (01) ==
LOC: RADMAMWWP 10:50
PROVIDERS: ATTEND Surgery
DX: R92.8 Other abnormal and inconclusive findings on diagnostic imaging of breast (principal)
CPT/HCPCS: 77061; 77065

== ENCOUNTER → 2019-05-12 | Outpatient (CLI) | payer BC, MEDICARE ==
--- NOTE | 2019-05-12 08:50 | MM ---
Reason for exam: follow-up at short interval from prior study. Last mammogram was performed 6 months ago. History: Patient is postmenopausal and has history of breast cancer at age 67. Malignant MG pre op needle loc LT of the left breast, June 06, 2018. Lumpectomy of the left breast, June 06, 2018. Malignant MG stereo VAD BX LT of the left breast, May 10, 2018. Physical Findings: Nurse did not find any significant physical abnormalities on exam. MG 3D Diag Mammo W/Cad MANUEL Bilateral CC and MLO view(s) were taken. Prior study comparison: November 08, 2018, left breast MG 3d diag mammo w/cad LT. April 19, 2018, left breast MG 3d follow up no charge LT. The breast tissue is heterogeneously dense. This may lower the sensitivity of mammography. Stable subareolar nodularity on the left. Post surgical and post therapy changes on the left. Right upper outer quadrant focal asymmetry disperses on additional views. 6 month follow up recommended. These results were verbally communicated with the patient and result sheet given to the patient on 05/12/19. ASSESSMENT: Probably benign, BI-RAD 3 RECOMMENDATION: Follow-up diagnostic mammogram of both breasts in 6 months.
== END | disposition home or self-care (01) ==
LOC: RADMAMWWP 06:43
PROVIDERS: ATTEND Surgery
DX: R92.8 Other abnormal and inconclusive findings on diagnostic imaging of breast (principal)
CPT/HCPCS: 77062; 77066

== ENCOUNTER → 2019-12-03 | Outpatient (CLI) | payer BC, MEDICARE ==
--- NOTE | 2019-12-04 09:55 | MM ---
Reason for exam: additional evaluation requested from prior study. Last mammogram was performed 7 months ago. History: Patient is postmenopausal and has history of breast cancer at age 67. Malignant MG pre op needle loc LT of the left breast, June 06, 2018. Lumpectomy of the left breast, June 06, 2018. Malignant MG stereo VAD BX LT of the left breast, May 10, 2018. Taking antineoplastic beginning at age 67. Physical Findings: Nurse did not find any significant physical abnormalities on exam. MG 3D Diag Mammo W/Cad MANUEL Bilateral CC and MLO view(s) were taken. Prior study comparison: May 12, 2019, bilateral MG 3d diag mammo w/cad MANUEL. November 08, 2018, left breast MG 3d diag mammo w/cad LT. The breast tissue is heterogeneously dense. This may lower the sensitivity of mammography. Finding: Architectural distortion in the upper outer quadrant of both breasts consistent with post surgical change. There is a chronic nodularity bilaterally. These results were verbally communicated with the patient and result sheet given to the patient on 12/03/19. ASSESSMENT: Benign, BI-RAD 2 RECOMMENDATION: Follow-up diagnostic mammogram of both breasts in 1 year.
== END | disposition home or self-care (01) ==
LOC: RADMAMWWP 09:45
PROVIDERS: ATTEND Surgery
DX: R92.8 Other abnormal and inconclusive findings on diagnostic imaging of breast (principal)
CPT/HCPCS: 77062; 77066

== ENCOUNTER → 2020-03-16 | Outpatient (CLI) | payer BC, MEDICARE ==
--- NOTE | 2020-03-16 18:36 | XR ---
Right knee HISTORY: Trauma and pain 3 views of the right knee There is tricompartmental joint space loss. Bone mineralization is reduced. Marginal spurring is pres ent in the medial compartment, there is likely underlying osteoarthritis. No fracture or dislocation is evident. Alignment is maintained. No sizable joint effusion. There is soft tissue swelling. IMPRESSION: No acute fracture or dislocation is evident.
== END | disposition home or self-care (01) ==
LOC: RAD 17:38
PROVIDERS: ATTEND Internal Medicine
DX: M25.561 Pain in right knee (principal)

== ENCOUNTER → 2020-12-06 | Outpatient (CLI) | payer MEDICARE ==
--- NOTE | 2020-12-09 12:03 | MM ---
Reason for exam: additional evaluation requested from prior study. Last mammogram was performed 1 year ago. History: Patient is postmenopausal and has history of breast cancer at age 67. Malignant MG pre op needle loc LT of the left breast, June 06, 2018. Lumpectomy of the left breast, June 06, 2018. Malignant MG stereo VAD BX LT of the left breast, May 10, 2018. Taking antineoplastic beginning at age 67. Physical Findings: Nurse did not find any significant physical abnormalities on exam. MG 3D Diag Mammo W/Cad MANUEL Bilateral CC and MLO view(s) were taken. Prior study comparison: December 03, 2019, bilateral MG 3d diag mammo w/cad MAN[facility]. May 12, 2019, bilateral MG 3d diag mammo w/cad MANUEL. There are scattered fibroglandular densities. Post operative changes left breast. These results were verbally communicated with the patient and result sheet given to the patient on 12/06/20. ASSESSMENT: Benign, BI-RAD 2 RECOMMENDATION: Follow-up diagnostic mammogram of both breasts in 1 year.
== END | disposition home or self-care (01) ==
LOC: RADMAMWWP 12:55
PROVIDERS: ATTEND Radiology Radiation Oncology
DX: N64.89 Other specified disorders of breast (principal); Z78.0 Asymptomatic menopausal state; Z85.3 Personal history of malignant neoplasm of breast
CPT/HCPCS: 77066; G0279; 77062

== ENCOUNTER → 2022-04-19 | Outpatient (CLI) | payer MEDICARE ==
--- NOTE | 2022-04-19 10:57 | CTL ---
EXAMINATION TYPE: CT Low Dose Lung DATE OF EXAM ORDERED: 04/19/2022 HISTORY: Long-term tobacco use. Lung cancer screening CT DLP: 108.[address] CTDI: 3.00 mGy Automated exposure control for dose reduction was used. SCREENING VISIT: Baseline COMPARISON: None TECHNIQUE: Low dose computed tomography scan was performed through the chest at 1 mm thick sections a nd reconstructed images in multiple planes at 1 mm and [address] DIAGNOSTIC QUALITY: Satisfactory FINDINGS: LUNG NODULES: Present, detailed below: Some benign-appearing calcified nodules or granulomas bilatera lly including largest 5 mm in the right upper lobe axial image 117. No significant greater than 5 mm noncalcified pulmonary nodules. LUNGS: COPD: Severity: None Fibrosis: Severity: Mild biapical Lymph nodes: No greater than 1 cm noncalcified. Some calcified subcentimeter paratracheal and right h ilar lymph nodes Other findings: RIGHT PLEURAL SPACE: Effusion: None Calcification: None Thickening: None Pneumothorax: None LEFT PLEURAL SPACE: Effusion: None Calcification: None Thickening: None Pneumothorax: None HEART: Heart Size: Normal Coronary Calcification: Moderate to severe Pericardial Effusion: None OTHER FINDINGS: Upper abdomen: Dependent calcified gallstones in gallbladder. Surgical changes from gastric bypass pr ocedure. Bony thorax: [id number] multilevel spurring in the spine Supraclavicular region: None Other: Surgical clips medially in the left breast. IMPRESSION: Evidence of old granulomatous disease. No suspicious noncalcified pulmonary nodules. CT LUNG RAD AND CT CHEST RECOMMENDATION: Lung-Rad 2 Benign Appearance or Behavior: Continue annual sc reening with LDCT in 12 months. S Modifier (other clinically significant findings): S Moderate to severe coronary artery calcification, correlate for additional cardiac risk factors.
--- NOTE | 2022-04-19 11:35 | MM ---
Reason for Exam: Additional evaluation requested from prior study. Last mammogram was performed 1 year(s) and 4 month(s) ago. Patient History: Menarche at age 12. First Full-Term at age 20. Hysterectomy at age 43. Postmenopausal. Breast cancer, left, age 67. 06/06/2018, Lumpectomy on the Left side. 06/06/2018, Malignant Core Biopsy on the left side. 05/10/2018, Malignant Core Biopsy on the left side. Prior Study Comparison: 04/12/2018 Bilateral Diagnostic Mammogram, [facility] WITH [facility]. 04/19/2018 Left Diagnostic Mammogram, [facility] WITH [facility]. 11/08/2018 Left Diagnostic Mammogram, [facility]. 05/12/2019 Bilateral Diagnostic Mammogram, [facility] WITH [facility]. 12/03/2019 Bilateral Diagnostic Mammogram, [facility] WITH [facility]. 12/06/2020 Bilateral Diagnostic Mammogram, [facility] WITH [facility]. Tissue Density: There are scattered fibroglandular densities. Findings: Analyzed By CAD. No significant changes when compared with prior studies. Chronic nodularity bilaterally. Post biopsy changes in the left breast. Overall Assessment: Benign, BI-RAD 2 Management: Diagnostic Mammogram of both breasts in 1 year. A clinical breast exam by your physician is recommended on an annual basis and results should be correlated with mammographic findings. This exam should not preclude additional follow-up of suspicious palpable abnormalities. Results were given to the patient verbally at the time of exam. Electronically signed and approved by: Maxi Leroy D.O. Radiologis
== END | disposition home or self-care (01) ==
LOC: RADMAMWWP 08:11
PROVIDERS: ATTEND Internal Medicine
DX: Z12.2 Encounter for screening for malignant neoplasm of respiratory organs (principal); I25.10 Atherosclerotic heart disease of native coronary artery without angina pectoris; N60.19 Diffuse cystic mastopathy of unspecified breast; Z87.891 Personal history of nicotine dependence
CPT/HCPCS: 77066; 71271; G0279; 77062

== ENCOUNTER → 2022-05-09 | Outpatient (CLI) | payer MEDICARE ==
--- NOTE | 2022-05-09 13:42 | BD ---
EXAMINATION TYPE: Axial Bone Density DATE OF EXAM: 05/09/2022 COMPARISON: 09-06-2018 PREVIOUS UNAVAILABLE CLINICAL HISTORY: 71 years year old Female. ICD-10 CODE: Z79.890 hormone replacement therapy Height: 64IN Weight: 228LB FRAX RISK QUESTIONS: Secondary Osteoporosis: 3. Menopause before 45: PARTIAL HYSTERECTOMY AT 43 RISK FACTORS HISTORY OF: Surgery to Spine/Hip(right/left)/Wrist (right/left): LUMBAR SURGERY 2016 Active: NO Postmenopausal woman: YES Lost more than 2 inches in height since high school: YES Frequent falls: YES Poor Health: GOOD MEDICATIONS: Additional Medications: BP MED, FOLIC ACID, VITAMIN D Additional History: BREAST CANCER WITH RADIATION 2018 EXAM MEASUREMENTS: Bone mineral densitometry was performed using the [employer]. Bone mineral density about the R hip (g/cm2): 0.919 Bone mineral density about the L hip (g/cm2): 0.950 T Score values are as follows: -----R Neck: -0.7 -----L Neck: -0.7 -----R Total: -0.7 -----L Total: -0.5 PREVIOUS 09-06-2018 UNAVAILABLE FOR COMPARISION FRAX%s: The graph provided illustrates a 7.9% chance for a major osteoporotic fx and a 0.8% chance fo r the hips probability for fx in 10 years time. IMPRESSION: Normal (Values between +1 and -1 indicate normal bone mass). Consider repeating this study in 5 year s or sooner if there is some new clinical indication. NOTE: T-SCORE=SD OF THE YOUNG ADULT MEAN.
== END | disposition home or self-care (01) ==
LOC: RADBDWWP 12:55
PROVIDERS: ATTEND Internal Medicine Hematology & Oncology
DX: Z78.0 Asymptomatic menopausal state (principal); Z79.890 Hormone replacement therapy; Z92.3 Personal history of irradiation
CPT/HCPCS: 77080

== ENCOUNTER → 2023-06-12 | Outpatient (CLI) | payer MEDICARE ==
--- NOTE | 2023-06-12 13:21 | MM ---
Reason for Exam: Hx of breast cancer, conservation therapy. Last mammogram was performed 1 year(s) and 2 month(s) ago. Patient History: Menarche at age 12. First Full-Term at age 20. Hysterectomy at age 43. Postmenopausal. Breast cancer, left, age 67. 06/06/2018, Lumpectomy on the Left side. 06/06/2018, Malignant Core Biopsy on the left side. 05/10/2018, Malignant Core Biopsy on the left side. Prior Study Comparison: 05/12/2019 Bilateral Diagnostic Mammogram, [facility]. 12/03/2019 Bilateral Diagnostic Mammogram, [facility]. 12/06/2020 Bilateral Diagnostic Mammogram, [facility]. 04/19/2022 Bilateral MG 3D diag mammo w/cad MANUEL, [facility]. Tissue Density: The breast tissue is heterogeneously dense. This may lower the sensitivity of mammography. Findings: Analyzed By CAD. Postsurgical and posttreatment changes left breast. Surgical scar is unchanged. Unchanged areas of asymmetric density on the right bilateral chronic nodularity. No significant change from prior exams. Overall Assessment: Benign, BI-RAD 2 Management: Screening Mammogram of both breasts in 1 year. . Results were given to the patient verbally at the time of exam. Patient should continue monthly self-breast exams. A clinical breast exam by your physician is recommended on an annual basis. This exam should not preclude additional follow-up of suspicious palpable abnormalities. Electronically signed and approved by: Jonatan Romo M.D. Radiologist
== END | disposition home or self-care (01) ==
LOC: RADMAMWWP 12:42
PROVIDERS: ATTEND Internal Medicine
DX: N60.19 Diffuse cystic mastopathy of unspecified breast (principal); R92.333 Mammographic heterogeneous density, bilateral breasts; Z85.3 Personal history of malignant neoplasm of breast; Z78.0 Asymptomatic menopausal state; Z98.890 Other specified postprocedural states
CPT/HCPCS: 77066; G0279; 77062

== ENCOUNTER → 2023-07-16 | Outpatient (CLI) | payer MEDICARE ==
--- NOTE | 2023-07-16 13:52 | CTL ---
EXAMINATION TYPE: CT Low Dose Lung DATE OF EXAM ORDERED: 07/16/2023 HISTORY: Personal tobacco use. Lung cancer screening CT DLP: 76 mGycm Automated exposure control for dose reduction was used. SCREENING VISIT: Subsequent COMPARISON: 04/19/2022 TECHNIQUE: Low dose computed tomography scan was performed through the chest at 1 mm thick sections a nd reconstructed images in the coronal plane at [address] DIAGNOSTIC QUALITY: Satisfactory FINDINGS: LUNG NODULES: Present, detailed below: Some biapical scarring is present. #1 there is a 0.4 cm pleural-based density posterior lateral right apex. Series 4 image 37. LUNGS: COPD: Severity: None Fibrosis: Severity: Lymph nodes: None Other findings: None RIGHT PLEURAL SPACE: Effusion: None Calcification: None Thickening: None Pneumothorax: None LEFT PLEURAL SPACE: Effusion: None Calcification: None Thickening: None Pneumothorax: None HEART: Heart Size: Normal Coronary calcification: Mild Pericardial effusion: None OTHER FINDINGS: Upper abdomen: Normal Bony thorax: Normal Supraclavicular region: Normal Other: None IMPRESSION: 1. Tiny stable pleural-based density posterior lateral right apex FOLLOW UP CT CHEST RECOMMENDATION: Follow-up limited CT chest one year. CT LUNG RAD: Lung-Rad 2 Benign Appearance or Behavior
== END | disposition home or self-care (01) ==
LOC: RADCTMAIN 11:06
PROVIDERS: ATTEND Internal Medicine
DX: Z12.2 Encounter for screening for malignant neoplasm of respiratory organs (principal); J43.8 Other emphysema; Z87.891 Personal history of nicotine dependence
CPT/HCPCS: 71271

== ENCOUNTER → 2023-12-04 | Outpatient (CLI) | payer MEDICARE ==
[2023-12-04 15:04] LABS: ALT 20 U/L (8-44); AST 18 U/L (13-35); Albumin 4.2 g/dL (3.8-4.9); Albumin/Globulin Ratio 1.83 Ratio (1.60-3.17); Alkaline Phosphatase 120 U/L (41-126); BUN/Creat Ratio 27.33 Ratio (12.00-20.00); Blood Urea Nitrogen 16.4 mg/dL (9.0-27.0); Calcium 8.8 mg/dL (8.7-10.3); Carbon Dioxide 25.4 mmol/L (21.6-31.8); Chloride 106 mmol/L (96-109); Chol/HDL Ratio 2.39 Ratio; Globulin 2.3 g/dL (1.6-3.3); Glucose 94 mg/dL (70-110); LDL Cholesterol,Calculated 60.8 mg/dL (0.0-131.0); Potassium 4.6 mmol/L (3.5-5.5); Sodium 144 mmol/L (135-145); Total Bilirubin 0.3 mg/dL (0.3-1.2); Total Protein 6.5 g/dL (6.2-8.2)
== END | disposition home or self-care (01) ==
LOC: LABWHC1 09:25
PROVIDERS: ATTEND Internal Medicine
DX: Z13.1 Encounter for screening for diabetes mellitus (principal); Z13.220 Encounter for screening for lipoid disorders; Z51.81 Encounter for therapeutic drug level monitoring; E78.2 Mixed hyperlipidemia; E55.9 Vitamin D deficiency, unspecified; E66.01 Morbid (severe) obesity due to excess calories; M85.80 Other specified disorders of bone density and structure, unspecified site; D72.828 Other elevated white blood cell count; I10 Essential (primary) hypertension; I25.84 Coronary atherosclerosis due to calcified coronary lesion; R53.83 Other fatigue; G47.09 Other insomnia; Z79.899 Other long term (current) drug therapy
CPT/HCPCS: 36415; 80053; 80061; 83036; 84443